=== PATIENT | male | born 1935 | race African-American/Black ===

== ENCOUNTER 2017-06-17 14:10 | Day surgery (SDC) | payer OTHER ==
[~2017-06-17 14:10] MED LIST: DIGO0.12 PO; LEVO25TA4 PO; LOVA40TA PO; PANT40TA3 PO; TAMS0.4C4 PO
--- NOTE | 2017-06-18 09:01 | RADRPT ---
EXAM DATE/TIME: 06/17/2017 00:00 [place] COMPARISON : No previous studies available for comparison. INDICATIONS : Colon Ca/liver mets OBJECTIVE: Temperature: 97.4 Heart Rate: 78 Blood Pressure: 140/70 Respiratory: 20 Oximetry: 98 PNEUMONIA VACCINE: HISTORY OF PRESENT ILLNESS: Mr. 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 Patient also has a history of renal cell carcinom a status post right-sided nephrectomy with now chronic azotemia. Followup CT imaging has demonstrated interval progression of disease in the liver with multiple bilobar hepatic masses. He is without com plaints and denies a palpable pain. He lives alone in a senior home but has a relatively good functio nal status, ECOG 1. PAST MEDICAL HISTORY : 1. Carcinoma, colon.Liver mets 2. Renal cell carcinoma. 3. Hypertension. 4. Neuropathy PAST SURGICAL HISTORY : 1. Left nephrectomy partial right nephrectomy 2. Pacer-defibrillator 3. Partial Colectomy SOCIAL HISTORY : No alcohol use. No alcohol use. Tobacco;none. ALLERGIES: 1. NKDA MEDICATIONS: 1. Neurontin (Gabapentin) 2. Lanoxin (Digoxin) 0.125 mg q.d. 3. Levothyroxine 25 mg q.d. 4. Lovastatin 40 mg q.d. 5. Pantoprazole 40 mg q.d. PHYSICAL EXAMINATION: General: Well nourished and in no acute distress Abdomen: Soft, nontender nondistended. IMAGING STUDIES: CT 06/09/2017 demonstrating multiple enlarging bilobar hepatic masses measuring up to 6 cm with at le ast 2 new lesions compared with 01/06/2017 CT exam. CMP collected 06/08/2017 demonstrates total bilirubin 0.7, albumin 4.0, normal AST and ALT. CEA eleva ольга 193.5. 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 He has relatively intact hepatic function with reasonable frontal status, ECOG 1. Extent of disease precludes curative intent ablative therapy. However, he is a good candidate for locoregio nal Y90 embolization. PLAN: Tentative plan for yttrium-90 embolization. TIME SPENT: 20 minutes Roibn Herrera MD on June 18, 2017 at 7:54 Board Certified Radiologist. This report was verified electronically.
== END 2017-06-17 15:20 | disposition home or self-care (01) ==
LOC: HROP 14:10 → HRIP 14:13 → HROP 15:20
PROVIDERS: ATTEND Internal Medicine Hematology & Oncology
DX: C78.7 Secondary malignant neoplasm of liver and intrahepatic bile duct (principal); C18.7 Malignant neoplasm of sigmoid colon; D64.9 Anemia, unspecified

== ENCOUNTER → 2018-01-29 | Day surgery (SDC) | payer OTHER ==
[~2018-01-29] VITALS: Ht 180.3 cm; Wt 71.9 kg
[~2018-01-29] MED LIST changes: +ACETAMINOPHEN 1000 MG/100 ML 0 ML IV ONE; +BUPIVACAINE HCL PF 0.25% 30 ML VIAL ONE; +CHLORHEXIDINE GLUCONATE 2 % 1 PACK (2 CLOTHS) TOPICAL PRN; +CIPROFLOXACIN/DEXT 200 MG/100 ML IV SCH; +FAMOTIDINE 20 MG/2 ML VIAL ONE; +GABA100C4 PO; +LACTATED RINGER'S 1000 ML IV PRN; +LIDOCAINE 2% JELLY 30 ML TUBE ONE; +LIDOCAINE HCL 1% PF 10 ML VIAL ONE; +LIDOCAINE HCL 1% PF 5 ML SYRINGE OTHER ONE; +METO25TA3 PO; +METOPROLOL TARTRATE 25 MG TAB PO PRN; +MIDAZOLAM HCL 2 MG/2 ML VIAL ONE; +PHENYLEPH/NS 1000 MCG/10 ML SYR IV ONE; +POVIDONE IODINE 5% (ANTISEPSIS KIT) 4 APPLICATIONS EACH NARE PRN; +PROPOFOL 200 MG/20 ML AMP IV ONE; +SODIUM CHLORID 0.9% 500 ML IV PRN
[2018-01-29 07:04] LABS: AUTOMATED NEUTROPHIL # 2.7 TH/MM3 (1.8-7.7); BASOPHIL % 0.7 % (0.0-2.0); EOSINOPHIL # 0.2 TH/MM3 (0-0.4); EOSINOPHIL % 3.9 % (0.0-4.0); HEMATOCRIT 37.7 % (39.0-51.0); HEMOGLOBIN 12.3 GM/DL (13.0-17.0); LYMPH % 29.3 % (9.0-44.0); LYMPHOCYTE # 1.4 TH/MM3 (1.0-4.8); MEAN CELL VOLUME 87.6 FL (80.0-100.0); MEAN CORPUSCULAR HEMOGLOBIN 28.7 PG (27.0-34.0); MEAN CORPUSCULAR HGB CONC 32.7 % (32.0-36.0); MEAN PLATELET VOLUME 8.5 FL (7.0-11.0); MONO % 10.7 % (0.0-8.0); MONOCYTE # 0.5 TH/MM3 (0-0.9); NEUT % 55.4 % (16.0-70.0); PLATELET COUNT 169 TH/MM3 (150-450); RED CELL DISTRIBUTION WIDTH 15.2 % (11.6-17.2); WHITE BLOOD COUNT 4.9 TH/MM3 (4.0-11.0)
--- NOTE | 2018-01-29 08:41 | PD.OP ---
Operative Report Date of Surgery: Jan 29, 2018 Preoperative Diagnosis: Elevated PSA with positive family history for prostate cancer Postoperative Diagnosis: Same Procedure: Trans-rectal ultrasound with prostate needle biopsies Anesthesia: [facility] [place] Surgeon: Diallo Rider Vat Tender(s): None Resident Surgeon: None Operation and Findings: 82-year-old male with elevation of his PSA of 16.4 with a positive family history for prostate cancer. Patient elected to undergo prostate needle biopsy. The patient received his preprocedure antibiotics as well as a fleets enema. Risk and benefits were discussed and the patient was willing to proceed. The patient was brought to the operating room and identified by myself as Bunny Ambrose. He was placed in the left lateral recumbent position and the ultrasound probe was inserted into the rectum. Volumetric measurements of the prostate were then taken. No hypoechoic lesions were identified. Volumetric measurements of the prostate were taken of the prostate was found to be 40.57 cm. 12 core biopsy specimens were taken. He tolerated the procedure well and was awoken and transferred to recovery room in stable condition. He will follow-up in the office in a few weeks to review the results. Diallo Rider DO Jan 29, 2018 08:41
[2018-01-29 09:40] VITALS: BP 158/78; PULSE 75; RESP 16; TEMP 97.6; O2SAT 98
--- NOTE | 2018-01-29 10:36 | EKG ---
Date Performed: 01/29/2018 Time Performed: 06:47:46 PTAGE: 82 years EKG: ELECTRONIC ATRIAL PACEMAKER ELECTRONIC VENTRICULAR PACEMAKER ABNORMAL RHYTHM ECG PREVIOUS TRACING : 12/26/2015 10.25 Compared to previous tracing, atrial pacing is now evident. DOCTOR: Deonte Rogers Interpretating Date/Time 01/29/2018 10:35:50
== END | disposition home or self-care (01) ==
LOC: HSDC 05:56
PROVIDERS: ATTEND Urology
DX: R97.20 Elevated prostate specific antigen [PSA] (principal); N40.0 Benign prostatic hyperplasia without lower urinary tract symptoms; Z80.42 Family history of malignant neoplasm of prostate; E03.9 Hypothyroidism, unspecified; I11.0 Hypertensive heart disease with heart failure; C18.9 Malignant neoplasm of colon, unspecified; I48.91 Unspecified atrial fibrillation; E78.00 Pure hypercholesterolemia, unspecified; Z95.0 Presence of cardiac pacemaker; G62.0 Drug-induced polyneuropathy; T45.1X5S Adverse effect of antineoplastic and immunosuppressive drugs, sequela; Z85.528 Personal history of other malignant neoplasm of kidney; Z01.810 Encounter for preprocedural cardiovascular examination; Z01.818 Encounter for other preprocedural examination
CPT/HCPCS: 00400; 55700; 85025; 88305; 93005; J0744; J2370; J7120; J0131; J2250; J3010

== ENCOUNTER 2018-07-16 18:43 | Inpatient (IN) ==
[2018-07-16 20:16] LABS: Baso % (Auto) 0.6 % (0.0-2.0); Eos % (Auto) 0.1 % (0.0-4.0); Hematocrit 39.4 % (39.0-51.0); Hemoglobin 12.7 gm/dL (13.0-17.0); Lymph # (Auto) 0.6 th/mm3 (1.0-4.8); Lymph % (Auto) 8.8 % (9.0-44.0); Mean Corpuscular HGB Conc 32.2 % (32.0-36.0); Mean Corpuscular Hemoglobin 28.2 pg (27.0-34.0); Mean Corpuscular Volume 87.6 fL (80.0-100.0); Mono # (Auto) 0.9 th/mm3 (0.0-0.9); Mono % (Auto) 12.4 % (0.0-8.0); Neut # (Auto) 5.6 th/mm3 (1.8-7.7); Neut % (Auto) 78.1 % (16.0-70.0); Platelet Count 158 th/mm3 (150-450); Red Cell Distribution Width 15.1 % (11.6-17.2); White Blood Count 7.1 th/mm3 (4.0-11.0)
[2018-07-16 20:24] LABS: Activated Partial Thrombo Time 28.8 sec (23.4-31.7); INR 1.1 Ratio; Prothrombin Time 10.9 sec (9.8-11.6)
--- NOTE | 2018-07-16 20:26 | XR ---
EXAM DATE: 07/16/2018 8:12 PM EST AGE/SEX: 83 years / Male INDICATIONS: Chest pain. CLINICAL DATA: This is the patient's initial encounter. Patient reports that signs and symptoms have been present for 1 day and indicates a pain score of 3/10. MEDICAL/SURGICAL HISTORY: . Cardiovascular disease. Carcinoma, colon. Hypertension. . Neph rectomy, right. Cholecystectomy. Pacemaker. Partial left nephrectomy COMPARISON: [facility] [place], CHEST 1V SINGLE AP, 07/01/2018. . FINDINGS: Today's exam is compared to the prior study. There continues to be stable elevation of the right ray diaphragm. There is stable atelectasis versus scarring in the right lower lung. Otherwise, the lungs are clear and well-aerated. No new or acute pulmonary infiltrates are seen. There is a pacemaker over lying the left chest. The heart size is within normal limits. There are no pleural effusions or pulmo nary edema. No significant changes are seen compared to the prior study. CONCLUSION: Stable atelectasis versus scarring in the right lower lung. Stable elevation right hemidiaphragm. No new or acute pulmonary infiltrates. Electronically signed by: Clyde Crum MD 07/16/2018 8:25 PM EST
[2018-07-16 20:29] LABS: Albumin 3.3 g/dL (3.4-5.0); Anion Gap 7 meq/L (5-15); Aspartate Aminotransferase 57 U/L (15-37); Blood Urea Nitrogen 32 mg/dL (7-18); Calcium 10.5 mg/dL (8.5-10.1); Carbon Dioxide 23.9 meq/L (21.0-32.0); Chloride 102 meq/L (98-107); Glomerular Filtration Rate 37 mL/min (>89); Glucose,Random 107 mg/dL (74-106); Sodium 133 meq/L (136-145)
[2018-07-16 20:30] LABS: Alanine Aminotransferase 14 U/L (12-78)
[2018-07-16 20:44] LABS: Alkaline Phosphatase 85 U/L (45-117); Creatine Kinase 1438 U/L (39-308); Total Protein 8.1 g/dL (6.4-8.2); Troponin I 0.04 ng/mL (0.02-0.05)
[2018-07-16 20:58] LABS: CKMB Percent 0.1 % (0.0-4.0); Creatine Kinase MB 1.1 ng/mL (0.5-3.6)
--- NOTE | 2018-07-16 21:06 | ED ---
HPI General Chief complaint: Electronic Warfare Technician Problem Stated complaint: pacemaker issues Time Seen by Provider: 07/16/18 19:50 Source: patient Mode of arrival: ambulatory Limitations: no limitations History of Present Illness HPI narrative: 83-year-old male that presents to the ED for evaluation of his pacemaker shocking him. Per patient he had a pacemaker replaced yesterday by Dr. Baird per patient he has been doing well except today he has been shocked per patient at least 4 times. Patient and family are not really great historians. Patient himself does not know if this is a defibrillator or not. Per patient he has the pacemaker because there is "a problem with his heart ". He cannot really specify what the problem is. He per family has a history of also cancer and currently is undergoing any chemo. They are concerned that this could be related to the reason why patient is having this sharp pains. Patient states that he takes blood thinners. She denies any urinary or bowel movement issues. Has no fevers chills or sweats. Pain per patient when he comes this sharp 7 out of 10. Currently he has no pain. Per patient and last went off about 30 minutes ago before coming. Patient is somewhat of a poor historian and doesn't know the medications he takes. When asked if the patient has a history of atrial fibrillation he is unsure in the family is also unsure. He does appear to be in atrial for ablation at this time however. Related Data Home Medications Medication Instructions Recorded Confirmed amiodarone 200 mg PO DAILY 07/15/18 07/16/18 hydrochlorothiazide 25 mg PO DAILY 07/15/18 07/16/18 isosorbide mononitrate 60 mg PO QAM 07/15/18 07/16/18 levothyroxine 25 mcg PO DAILY 07/15/18 07/16/18 lovastatin 40 mg PO DAILY 07/15/18 07/16/18 metoprolol succinate 100 mg PO DAILY 07/15/18 07/16/18 pantoprazole 40 mg PO DAILY 07/15/18 07/16/18 spironolactone 25 mg PO BID 07/15/18 07/16/18 Previous Rx's Medication Instructions Recorded hydrocodone-acetaminophen 1 tab PO Q4H PRN tab 07/15/18 Allergies Allergy/AdvReac Type Severity Reaction Status Date / Time No Known Allergies Allergy Verified 07/15/18 05:45 Review of Systems ROS: all other systems reviewed are negative [facility] Medical History Medical History CAD (coronary artery disease) (Acute) CHF (congestive heart failure) (Acute) Cardiac defibrillator in place (Acute) Cardiomyopathy (Acute) Colon cancer (Acute) Hypertension (Acute) Hypothyroid (Acute) S/p nephrectomy (Acute) SVT (supraventricular tachycardia) (Acute) Social History Social History Substance History: No History of Abuse Second Hand Smoke Exposure: Yes Smoking Status: Never smoker How Often Do You Have a Drink Containing Alcohol: Never Immunization History Tetanus Immunization: Unsure Exam Narrative Exam Narrative: GENERAL: Well appearing. Anorexic. SKIN: Focused skin assessment warm/dry. HEAD: Atraumatic. Normocephalic. EYES: Pupils equal and round 4mms reactive to light and accomodation. No scleral icterus. No injection or drainage. ENT: No nasal bleeding or discharge. Mucous membranes pink and moist. Tongue is midline. No uvula deviation. NECK: Trachea midline. No JVD. CARDIOVASCULAR: irregular irregular rate and rhythm. No murmur appreciated. RESPIRATORY: No accessory muscle use. Clear to auscultation. Breath sounds equal bilaterally. GASTROINTESTINAL: Abdomen soft, non-tender, nondistended. Hepatic and splenic margins not palpable. MUSCULOSKELETAL: No obvious deformities. No clubbing. No cyanosis. No edema. Full range of motion of the upper and lower extremities bilaterally. 2+ pulses bilaterally. NEUROLOGICAL: Awake and alert. No obvious cranial nerve deficits. Motor grossly within normal limits. Normal speech. PSYCHIATRIC: Appropriate mood and affect; insight and judgment normal. Course Initial Documented Vital Signs Temperature 97.2 F L 07/16/18 19:02 Pulse Rate 120 H 07/16/18 19:02 Respiratory Rate 20 07/16/18 19:02 Blood Pressure 139/81 07/16/18 19:02 Pulse Oximetry 98 07/16/18 19:02 Last Documented Vital Signs Temperature 97.2 F L 07/16/18 19:02 Pulse Rate 118 H 07/16/18 21:00 Respiratory Rate 20 07/16/18 21:00 Blood Pressure 125/58 L 07/16/18 21:00 Pulse Oximetry 97 07/16/18 21:00 Medical Decision Making MDM Narrative Medical decision making narrative: 83-year-old male that presents to the ED for evaluation of his of her bladder going off about 4 times today. Patient was properly examined and was found to have signs and symptoms consistent appears to be atrial fibrillation. We will have his pacemaker interrogated. Patient was on Cardizem. Labs and imaging ordered. Labs and imaging showed no sign of acute disease or to an elevated CK likely from having his heart shocked at least 6 times per Video [employer] report. Per report patient has been going to ventricular rates of 182-273 bpm and he has been in A. fib as well. Per Video Rec[employer] rapid he is going to talk to Dr. Gates and he believes he is currently in the building. Labs and imaging showed no sign of acute disease other than atrial fib in RVR. Dr Lee called back and recommends admission and medical management. Case discussed with my attending Dr Jean-Baptiste who agrees with plan. Dr Wadsworth agrees to admission to her service. Medical Screen Exam Complete: Yes Emergency Medical Condition: Yes Differential Diagnosis Differential Diagnosis: core manager malfunction versus A. fib and RVR versus SVT versus arrhythmia versus ACS Medical Records Medical records reviewed: Yes I reviewed the patient's medical records. Lab Data Lab results reviewed: Yes I reviewed the patient's lab results. Result diagrams: 07/16/18 20:00 07/16/18 20:00 Lab Results 07/16/18 07/16/18 07/16/18 Range/Units 20:00 20:00 20:00 WBC 7.1 (4.0-11.0) th/mm3 RBC 4.50 (4.50-5.90) mil/mm3 Hgb 12.7 L (13.0-17.0) gm/dL Hct 39.4 (39.0-51.0) % MCV 87.6 (80.0-100.0) fL MCH 28.2 (27.0-34.0) pg MCHC 32.2 (32.0-36.0) % RDW 15.1 (11.6-17.2) % Plt Count 158 (150-450) th/mm3 MPV 10.0 (7.0-11.0) fL Neut % (Auto) 78.1 H (16.0-70.0) % Lymph % (Auto) 8.8 L (9.0-44.0) % Gregg % (Auto) 12.4 H (0.0-8.0) % Eos % (Auto) 0.1 (0.0-4.0) % Baso % (Auto) 0.6 (0.0-2.0) % Neut # (Auto) 5.6 (1.8-7.7) th/mm3 Lymph # (Auto) 0.6 L (1.0-4.8) th/mm3 Gregg # (Auto) 0.9 (0.0-0.9) th/mm3 Eos # (Auto) 0.0 (0.0-0.4) th/mm3 Baso # (Auto) 0.0 (0.0-0.2) th/mm3 WBC Differential . Differential Comment Auto diff final PT 10.9 (9.8-11.6) sec INR 1.1 Ratio APTT 28.8 (23.4-31.7) sec Sodium 133 L (136-145) meq/L Potassium 5.0 (3.5-5.1) meq/L Chloride 102 (98-107) meq/L Carbon Dioxide 23.9 (21.0-32.0) meq/L Anion Gap 7 (5-15) meq/L BUN 32 H (7-18) mg/dL Creatinine 2.08 H (0.60-1.30) mg/dL Estimated GFR 37 L (>89) mL/min Random Glucose 107 H (74-106) mg/dL Calcium 10.5 H (8.5-10.1) mg/dL Total Bilirubin 1.2 H (0.2-1.0) mg/dL AST 57 H (15-37) U/L ALT 14 (12-78) U/L Alkaline Phosphatase 85 (45-117) U/L Total Creatine Kinase 1438 H (39-308) U/L CK-MB (CK-2) 1.1 (0.5-3.6) ng/mL CK-MB (CK-2) % 0.1 (0.0-4.0) % Troponin I 0.04 (0.02-0.05) ng/mL Total Protein 8.1 (6.4-8.2) g/dL Albumin 3.3 L (3.4-5.0) g/dL Imaging Data Attestation: I personally reviewed and interpreted this imaging study as follows : Radiologist's impression: Chest X-Ray 07/16/18 19:51 CONCLUSION: Stable atelectasis versus scarring in the right lower lung. Stable elevation right hemidiaphragm. No new or acute pulmonary infiltrates. ECG Data Attestation: I personally reviewed and interpreted this ECG as follows: Interpretation: EKG shows paced rhythm with what appears to be also atrial fibrillation. No sign of acute ischemia read by me and attending. Discharge Plan Discharge Disposition Patient Disposition: 30 Still Patient Discharge Details Diagnosis: Atrial fibrillation with RVR, Defibrillator discharge Physicians Team ED Provider: Thony Jean-Baptiste ED Midlevel Provider: Byron Spangler Primary Care Provider: SUMANTH, Attending Provider: Keri Wadsworth Discharge Interventions Interventions: Vital Signs Last Done: 07/16/18 21:00 Status ED Status: Admitted Patient
[2018-07-16] MEDS ORDERED: Acetaminophen 325 MG Tablet PO PRN (21:46)
[2018-07-16] MEDS ORDERED: Bisacodyl 10 MG Supp RECTAL PRN (21:46)
--- NOTE | 2018-07-16 21:48 | P.HPIM ---
History of Present Illness History of Present Illness: This is an 83-year-old male with a PMH of HTN, CAD, h/o Colon CA, h/o V-tach s/ p AICD and h/o Nephrectomy who was brought to the ER by family for c/o SOB and AICD firing. Pt underwent AICD replacement for end of life battery by Dr. Ervin yesterday, on 07/15/18, per family pt had been doing well until today when he developed acute onset of SOB. Niece notes pt w/ multiple episodes of AICD firing. On arrival, pt noted to be in A-fib w/ RVR, HR 130's. Medtronic device interrogated in ER, pt shocked 6 times after going into ventricular rate of approx 182-273 w/ episodes of A-fib. Dr. Lee consulted by ER physician , recommendation for Cardizem gtt. Pt currently without complaints. BP 129/75 , HR 99, O2 sat 97% on RA, Afebrile. CBC essentially unremarkable. INR 1.1 per creatinine 2.08, previously 2.0 on 07/01/2018. CPK 1438. Troponin 0.04. CXR with stable findings, no acute infiltrates. - Diagnosis (1) Defibrillator discharge (2) Atrial fibrillation with RVR (3) Rhabdomyolysis (4) Renal insufficiency Inpatient Certification: I certify that the inpatient services were ordered in accordance with Medicare regulations governing the order. This includes certification that hospital inpatient services are reasonable and necessary and in the case of services not specified as inpatient-only under 42 CFR 419.22(n), that they are appropriately provided as inpatient services in accordance to with the 2-midnight benchmark under 43 CFR 412.3(e) Estimated Total Length of Stay (Days): 2 Plans for Post Hospital Care: Not yet determined Review of Systems PAST FAMILY HISTORY: Reviewed. No h/o DM or CAD All other systems reviewed negative except as stated in HPI [facility] - History History Provided By: Patient - Medical History Medical History: Medical History (Last Reviewed 07/16/18 @ 21:03 by GURINDER Dupree) CAD (coronary artery disease) CHF (congestive heart failure) Cardiac defibrillator in place Cardiomyopathy Colon cancer Hypertension Hypothyroid S/p nephrectomy SVT (supraventricular tachycardia) - Tobacco History Second Hand Smoke Exposure: Yes Smoking Status: Never smoker - Alcohol History How Often Do You Have a Drink Containing Alcohol: Never - Substance Use History Substance History: No History of Abuse - Immunization History Tetanus Immunization: Unsure Medications and Allergies Active Medications: Active Medications Diltiazem HCl 125 mg/ Sodium (Chloride) 125 mls @ 5 mls/hr IV.CONT TITRATE PRN ; Protocol PRN Reason: Per Protocol Allergies Allergy/AdvReac Type Severity Reaction Status Date / Time No Known Allergies Allergy Verified 07/15/18 05:45 Home Medications Medication Instructions Recorded Confirmed Type amiodarone 200 mg PO DAILY 07/15/18 07/16/18 History hydrochlorothiazide 25 mg PO DAILY 07/15/18 07/16/18 History isosorbide mononitrate 60 mg PO QAM 07/15/18 07/16/18 History levothyroxine 25 mcg PO DAILY 07/15/18 07/16/18 History lovastatin 40 mg PO DAILY 07/15/18 07/16/18 History metoprolol succinate 100 mg PO DAILY 07/15/18 07/16/18 History pantoprazole 40 mg PO DAILY 07/15/18 07/16/18 History spironolactone 25 mg PO BID 07/15/18 07/16/18 History Exam Vital signs: Vital Signs 07/16/18 19:02 07/16/18 19:06 07/16/18 20:06 Temperature 97.2 F L Pulse Rate 120 H 123 H 110 H Respiratory Rate 20 20 20 Blood Pressure 139/81 143/80 H 154/73 H Pulse Oximetry 98 98 98 07/16/18 21:00 Temperature Pulse Rate 118 H Respiratory Rate 20 Blood Pressure 125/58 L Pulse Oximetry 97 Intake & Output 07/16/18 07/16/18 07/17/18 06:59 18:59 06:59 Weight 63.503 kg Narrative: PE: GENERAL: Pleasant elderly black male in no acute distress. Family at bedside. SKIN: Focused skin assessment warm and dry. HEENT: PERRLA, EOMI. No scleral icterus or conjunctival pallor. No lid lag or facial droop. CARDIOVASCULAR: Irregularly irregular, in A. fib, HR 100's. no obvious murmurs to auscultation. No chest tenderness to palpation. RESPIRATORY: No obvious rhonchi or wheezing. Clear to auscultation. Breath sounds equal bilaterally. GASTROINTESTINAL: Abdomen soft, non-tender, nondistended. BS normal. MUSCULOSKELETAL: Extremities without clubbing, cyanosis, or edema. No obvious deformities. NEUROLOGICAL: Awake, alert and oriented x4. No focal neurologic deficits. Moving both upper and lower extremities spontaneously. PSYCHIATRIC: Appropriate mood and affect. Insight and judgment normal. Results - Labs CBC & Chem 7: 07/16/18 20:00 07/16/18 20:00 Labs: Short CBC 07/16/18 Range/Units 20:00 WBC 7.1 (4.0-11.0) th/mm3 Hgb 12.7 L (13.0-17.0) gm/dL Hct 39.4 (39.0-51.0) % Plt Count 158 (150-450) th/mm3 BMP 07/16/18 20:00 Sodium 133 L Potassium 5.0 Chloride 102 Carbon Dioxide 23.9 BUN 32 H Creatinine 2.08 H Calcium 10.5 H Cardiac Enzymes 07/16/18 Range/Units 20:00 Total Creatine Kinase 1438 H (39-308) U/L CK-MB (CK-2) 1.1 (0.5-3.6) ng/mL Troponin I 0.04 (0.02-0.05) ng/mL Liver Function 07/16/18 Range/Units 20:00 Total Bilirubin 1.2 H (0.2-1.0) mg/dL AST 57 H (15-37) U/L ALT 14 (12-78) U/L Alkaline Phosphatase 85 (45-117) U/L Albumin 3.3 L (3.4-5.0) g/dL - Imaging Impressions Chest X-Ray 07/16/18 19:51 CONCLUSION: Stable atelectasis versus scarring in the right lower lung. Stable elevation right hemidiaphragm. No new or acute pulmonary infiltrates. Caprini VTE Risk Assessment Caprini VTE Risk Assessment: No/Low Risk (score <= 1) Caprini Risk Assessment Model: Point Value = 1 Point Value = 2 Point Value = 3 Point Value = 5 Age 41-60 Minor surgery BMI > 25 kg/m2 Swollen legs Varicose veins or History of unexplained or recurrent spontaneous Oral contraceptives or hormone replacement Sepsis (< 1 month) Serious lung disease, including pneumonia (< 1 month) Abnormal pulmonary function Acute myocardial infarction Congestive heart failure (< 1 month) History of inflammatory bowel disease Medical patient at bed rest Age 61-74 Arthroscopic surgery Major open surgery (> 45 min) Laparoscopic surgery (> 45 min) Malignancy Confined to bed (> 72 hours) Immobilizing plaster cast Central venous access Age >= 75 History of VTE Family history of VTE Factor V Leiden Prothrombin [id number] Lupus anticoagulant Anticardiolipin antibodies Elevated serum homocysteine Heparin-induced thrombocytopenia Other congenital or acquired thrombophilia Stroke (< 1 month) Elective arthroplasty Hip, pelvis, or leg fracture Acute spinal cord injury (< 1 month) Prophylaxis Regimen: Total Risk Factor Score Risk Level Prophylaxis Regimen 0-1 Low Early ambulation 2 Moderate Order ONE of the following: *Sequential Compression Device (SCD) *Heparin 5000 units SQ BID 3-4 Higher Order ONE of the following medications: *Heparin 5000 units SQ TID *Enoxaparin/Lovenox 40 mg SQ daily (WT < 150 kg, CrCl > 30 mL/min) *Enoxaparin/Lovenox 30 mg SQ daily (WT < 150 kg, CrCl > 10-29 mL/min) *Enoxaparin/Lovenox 30 mg SQ BID (WT < 150 kg, CrCl > 30 mL/min) AND/OR *Sequential Compression Device (SCD) 5 or more Highest Order ONE of the following medications: *Heparin 5000 units SQ TID (Preferred with Epidurals) *Enoxaparin/Lovenox 40 mg SQ daily (WT < 150 kg, CrCl > 30 mL/min) *Enoxaparin/Lovenox 30 mg SQ daily (WT < 150 kg, CrCl > 10-29 mL/min) *Enoxaparin/Lovenox 30 mg SQ BID (WT < 150 kg, CrCl > 30 mL/min) AND *Sequential Compression Device (SCD) Assessment and Plan - Assessment (1) Defibrillator discharge Code(s): Z45.02 - Encounter for adjustment and management of automatic implantable cardiac defibrillator Status: Acute (2) Atrial fibrillation with RVR Code(s): I48.91 - Unspecified atrial fibrillation Status: Acute (3) Rhabdomyolysis Code(s): M62.82 - Rhabdomyolysis Status: Acute (4) Renal insufficiency Code(s): N28.9 - Disorder of kidney and ureter, unspecified Status: Acute - Plan A/P: 1. AICD Firing: s/p Medtronic exchange 07/15/[address] Ervin for end of life battery, today w/ AICD firing x6 per [employer] interrogation, noted to have ventricular rates of 182-273 and episodes of A-fib. Currently without complaints, Consult Dr. Ervin for further eval/intervention. 2. A-fib: w/ RVR, unclear if h/o A-fib, HR 130's on arrival, Dr. Lee consulted by ER physician, recommendation for Cardizem gtt, will admit to [facility], continue Cardizem. 3. Rhabdomyolysis: CPK 1438, IVF for hydration-caution w/ h/o CHF, monitor I/O , repeat CPK in am for trend. 4. Renal Insufficiency: Creatinine 2.08, previously 2.00 on 07/01/18, monitor I/O as above, gentle IVF for hydration, repeat labs in am. 5. DVT Prophylaxis: SCD/Teds 6. Social work for d/c planning as needed 7. Case discussed w/ ER physician at length, labs/records/imaging reviewed by me.
[2018-07-16] MEDS: dilTIAZem Inj 125 MG in Sodium Chlor 0.9% Inj 100 ML IV.CONT PRN (22:16)
[2018-07-16] MEDS: Sod Chloride 0.9% Inj 1,000 ML IV.CONT SCH (22:16)
[2018-07-17 03:42] LABS: Baso % (Auto) 0.6 % (0.0-2.0); Eos % (Auto) 0.2 % (0.0-4.0); Hemoglobin 10.3 gm/dL (13.0-17.0); Lymph # (Auto) 0.7 th/mm3 (1.0-4.8); Lymph % (Auto) 13.3 % (9.0-44.0); Mean Corpuscular HGB Conc 33.2 % (32.0-36.0); Mean Corpuscular Hemoglobin 28.5 pg (27.0-34.0); Mean Platelet Volume 9.7 fL (7.0-11.0); Mono # (Auto) 0.7 th/mm3 (0.0-0.9); Mono % (Auto) 12.8 % (0.0-8.0); Neut # (Auto) 3.9 th/mm3 (1.8-7.7); Neut % (Auto) 73.1 % (16.0-70.0); Platelet Count 130 th/mm3 (150-450); Red Cell Distribution Width 14.8 % (11.6-17.2); White Blood Count 5.3 th/mm3 (4.0-11.0)
[2018-07-17 04:12] LABS: Alanine Aminotransferase 10 U/L (12-78); Albumin 2.5 g/dL (3.4-5.0); Alkaline Phosphatase 65 U/L (45-117); Anion Gap 8 meq/L (5-15); Aspartate Aminotransferase 40 U/L (15-37); Blood Urea Nitrogen 29 mg/dL (7-18); Calcium 9.4 mg/dL (8.5-10.1); Carbon Dioxide 25.3 meq/L (21.0-32.0); Chloride 106 meq/L (98-107); Creatine Kinase 803 U/L (39-308); Glomerular Filtration Rate 45 mL/min (>89); Glucose,Random 140 mg/dL (74-106); Potassium 4.5 meq/L (3.5-5.1); Sodium 139 meq/L (136-145); Total Protein 6.4 g/dL (6.4-8.2); Troponin I 0.05 ng/mL (0.02-0.05)
[2018-07-17 04:33] LABS: CKMB Percent 0.1 % (0.0-4.0); Creatine Kinase MB 1.1 ng/mL (0.5-3.6)
[2018-07-17] MEDS: Isosorbide Mononitrate 60 MG ER 24HR Tablet (Imdur) PO SCH ×2 (05:41→09:39)
[2018-07-17] MEDS: Amiodarone 200 MG Tablet PO SCH (09:41)
[2018-07-17] MEDS: Senna/Docusate Sodium 8.6/50 MG Tablet PO SCH ×2 (09:41→21:17)
[2018-07-17] MEDS: Spironolactone 25 MG Tablet PO SCH ×2 (09:41→21:15)
[2018-07-17] MEDS: Sod Chloride 0.9% Inj 1,000 ML IV.CONT SCH ×3 (09:42→18:02)
--- NOTE | 2018-07-17 12:51 | ECG ---
Date Performed: 07/16/2018 Time Performed: 19:52:52 PTAGE: 83 years EKG: ELECTRONIC VENTRICULAR PACEMAKER ABNORMAL RHYTHM ECG Since the previous tracing, no signifi cant change noted NO PREVIOUS TRACING DOCTOR: Ravinder Gimenez Interpretating Date/Time 07/17/2018 12:49:24
--- NOTE | 2018-07-17 13:19 | P.PN ---
Subjective Interval history: currently in paced rhythm telemetry reviewed- earlier went into a fib rhythm, tachy at 130s states ff by Dr. Ervin- does not recall being on an OAC Physical Exam Vital signs: Vital Signs 07/16/18 19:02 07/16/18 19:06 07/16/18 20:06 Temperature 97.2 F L Pulse Rate 120 H 123 H 110 H Respiratory Rate 20 20 20 Blood Pressure 139/81 143/80 H 154/73 H Pulse Oximetry 98 98 98 07/16/18 21:00 07/16/18 22:00 07/16/18 23:00 Temperature Pulse Rate 118 H 99 H 90 Respiratory Rate 20 20 18 Blood Pressure 125/58 L 129/75 124/59 L Pulse Oximetry 97 98 07/17/18 00:02 07/17/18 03:00 07/17/18 04:00 Temperature 98.2 F 98.1 F Pulse Rate 86 72 66 Respiratory Rate 18 18 Blood Pressure 118/60 129/76 Pulse Oximetry 97 97 07/17/18 05:00 07/17/18 06:00 07/17/18 07:00 Temperature Pulse Rate 74 89 92 H Respiratory Rate Blood Pressure Pulse Oximetry 07/17/18 07:37 07/17/18 08:00 07/17/18 09:00 Temperature 99.2 F Pulse Rate 92 H 104 H 102 H Respiratory Rate 16 Blood Pressure 123/64 Pulse Oximetry 97 07/17/18 10:00 07/17/18 11:30 07/17/18 12:00 Temperature 99.5 F Pulse Rate 92 H 83 82 Respiratory Rate 16 Blood Pressure 128/57 L Pulse Oximetry 97 07/17/18 13:00 Temperature Pulse Rate 84 Respiratory Rate Blood Pressure Pulse Oximetry Intake & Output 07/16/18 07/17/18 07/17/18 18:59 06:59 18:59 Intake Total 240 / 240 Output Total 800 / 800 Balance -560 / -560 Weight 68 kg Intake: Oral 240 / 240 Output: Urine 800 / 800 Other: Date of Last Bowel Movement 07/16/18 # Incontinent Bowel Movements 0 Narrative: PE: GENERAL: Pleasant elderly black male in no acute distress.anciteric neck supple rgular rhtyhm - paced rhythm - occasional skipped beats no rales abdomen-soft, nontender extremities no edema moves eddie xtremities spotnaeously Results - Labs CBC & Chem 7: 07/17/18 03:00 07/18/18 05:33 Laboratory Results - last 24 hr 07/16/18 07/16/18 07/16/18 20:00 20:00 20:00 WBC 7.1 RBC 4.50 Hgb 12.7 L Hct 39.4 MCV 87.6 MCH 28.2 MCHC 32.2 RDW 15.1 Plt Count 158 MPV 10.0 Neut % (Auto) 78.1 H Lymph % (Auto) 8.8 L Chambers % (Auto) 12.4 H Eos % (Auto) 0.1 Baso % (Auto) 0.6 Neut # (Auto) 5.6 Lymph # (Auto) 0.6 L Chambers # (Auto) 0.9 Eos # (Auto) 0.0 Baso # (Auto) 0.0 WBC Differential . Differential Comment Auto diff final PT 10.9 INR 1.1 APTT 28.8 Sodium 133 L Potassium 5.0 Chloride 102 Carbon Dioxide 23.9 Anion Gap 7 BUN 32 H Creatinine 2.08 H Estimated GFR 37 L Random Glucose 107 H Calcium 10.5 H Total Bilirubin 1.2 H AST 57 H ALT 14 Alkaline Phosphatase 85 Total Creatine Kinase 1438 H CK-MB (CK-2) 1.1 CK-MB (CK-2) % 0.1 Troponin I 0.04 Total Protein 8.1 Albumin 3.3 L 07/17/18 07/17/18 07/17/18 00:25 03:00 03:00 WBC 5.3 RBC 3.60 L Hgb 10.3 L D Hct 31.0 L MCV 86.0 MCH 28.5 MCHC 33.2 RDW 14.8 Plt Count 130 L MPV 9.7 Neut % (Auto) 73.1 H Lymph % (Auto) 13.3 Chambers % (Auto) 12.8 H Eos % (Auto) 0.2 Baso % (Auto) 0.6 Neut # (Auto) 3.9 Lymph # (Auto) 0.7 L Chambers # (Auto) 0.7 Eos # (Auto) 0.0 Baso # (Auto) 0.0 WBC Differential . Differential Comment Auto diff final PT INR APTT Sodium 139 Potassium 4.5 Chloride 106 Carbon Dioxide 25.3 Anion Gap 8 BUN 29 H Creatinine 1.78 H Estimated GFR 45 L Random Glucose 140 H Calcium 9.4 D Total Bilirubin 0.8 AST 40 H ALT 10 L Alkaline Phosphatase 65 Total Creatine Kinase 803 H CK-MB (CK-2) 1.1 CK-MB (CK-2) % 0.1 Troponin I 0.05 0.05 Total Protein 6.4 D Albumin 2.5 L D - Imaging Impressions Chest X-Ray 07/16/18 19:51 CONCLUSION: Stable atelectasis versus scarring in the right lower lung. Stable elevation right hemidiaphragm. No new or acute pulmonary infiltrates. Assessment and Plan - Assessment (1) Defibrillator discharge Code(s): Z45.02 - Encounter for adjustment and management of automatic implantable cardiac defibrillator Status: Acute (2) Atrial fibrillation with RVR Code(s): I48.91 - Unspecified atrial fibrillation Status: Acute (3) Rhabdomyolysis Code(s): M62.82 - Rhabdomyolysis Status: Acute (4) Renal insufficiency Code(s): N28.9 - Disorder of kidney and ureter, unspecified Status: Acute - Plan 83 years old AICD Firing: s/p Medtronic exchange 07/15/[address] Ervin for end of life battery, today w/ AICD firing x6 per [employer] interrogation, noted to have Underlying A-fib: w/ RVR, unclear if h/o A-fib,- now with paced rhythm HR 130's on arrival Likely with underlying CMP- having AICD + on aldactone- not in clinical failure - ventricular rates of 182-273 and episodes of A-fib. - telemetry- paced rhythm- continue to monitor - Dr. Lee consulted by ER recommendation for Cardizem gtt- continue- 5 mg/ hr - continue on Nitrates, Aldactone - started on Amiodarone 200 mg daily, Toprol 100 mg XL daily - reviewed meds- not on any OAC - will d/w Cardio Rhabdomyolysis: CPK 1438- downt o 800s TOAN on underlying chronic Renal Insufficiency: with hsitory of nephrectomy - creatinine trended down- near baseline - continue IVF- decreased rate with udnerlying CMP - ff BMP, CK level DVT Prophylaxis: SCD/Teds will start Lovenox 30 mg SQ daily
[2018-07-17] MEDS: Enoxaparin Inj 30 MG/0.3 ML Syringe SQ SCH (14:07)
--- NOTE | 2018-07-17 16:16 | MB ---
cc: Nomi Lee DO DATE: 07/17/2018 REASON FOR CONSULTATION: AICD firing. HISTORY OF PRESENT ILLNESS: Zoila Ambrose is a pleasant 83-year-old male who is known to my partner, Dr. Ervin and underwent a generator exchange yesterday as his previous one was at end of life. Apparently, last night he developed acute onset of shortness of breath and his AICD fired 6 times. On arrival here, he was noted to be in atrial fibrillation with rapid ventricular response. Medtronic device was interrogated and he was noted to be shocked 6 times for ventricular rates of 182 to 273 due to atrial fibrillation. No ventricular tachycardia was noted. He was started on a Cardizem drip and this has since controlled his heart rate. In seeing him this morning, he states that he is feeling better with no chest pain or shortness of breath. PAST MEDICAL HISTORY: 1. Hypertension. 2. Coronary artery disease. 3. Colon cancer. 4. History of ventricular tachycardia. 5. Cardiomyopathy. 6. Atrial fibrillation. PAST SURGICAL HISTORY: 1. Generator exchange (07/15/2018) for end of life on previous device, implanted Medtronic biventricular pacemaker/defibrillator with pocket revision. 2. Transrectal ultrasound with prostate needle biopsy (01/29/2018). 3. Left partial nephrectomy (12/25/2015). 4. Sigmoid colectomy (06/29/2015). ALLERGIES: NO KNOWN DRUG ALLERGIES. MEDICATIONS: 1. Imdur 60 mg every morning. 2. Hydrochlorothiazide 25 mg daily. 3. Amiodarone 200 mg daily. 4. Synthroid 25 mcg daily. 5. Lovastatin 40 mg daily. 6. Toprol-XL 100 mg daily. 7. Protonix 40 mg daily. 8. Spironolactone 25 mg b.i.d. FAMILY HISTORY: Denies premature coronary artery disease or sudden cardiac within the family. SOCIAL HISTORY: Denies tobacco, alcohol or drug abuse. REVIEW OF SYSTEMS: Fourteen systems were reviewed including osteopathic. Pertinent positives and negatives above, otherwise negative. PHYSICAL EXAMINATION: VITAL SIGNS: Temperature 99.5, heart rate 83, blood pressure 128/57, respirations 16, pulse oximetry 97% on room air. GENERAL: The patient appears well, in no acute distress, alert and awake. HEENT: Extraocular muscles intact. Mucous membranes moist. NECK: Supple. No JVD at 45 degrees. No carotid bruits heard bilaterally. Carotid upstroke is brisk in nature. HEART: Irregularly irregular. Positive first and second heart sounds with no noted murmurs, gallops or rubs. LUNGS: Clear to auscultation bilaterally. No wheezes, rales or rhonchi. ABDOMEN: Soft, nontender, nondistended. No organomegaly noted. EXTREMITIES: Show no clubbing, cyanosis or edema. Femoral and distal pulses intact bilaterally. NEUROLOGIC: No focal deficits. SKIN: Warm, dry and intact. OSTEOPATHIC: No kyphoscoliosis, lordosis or paraspinal tender points. LABORATORY DATA: Hemoglobin 10.3, hematocrit 31.0, platelets 130. Potassium 4.5, BUN 29, creatinine 1.78. Troponin 0.05. Total CK 1438 decreasing to 803. Electrocardiogram (07/16/2018 at 1952): Underlying atrial fibrillation with ventricular pacing. IMPRESSION: 1. Atrial fibrillation with rapid ventricular response. 2. Automated implantable cardioverter defibrillator firing x6 for atrial fibrillation with rapid ventricular response. 3. Rhabdomyolysis. 4. Dehydration/acute kidney injury. 5. Known cardiomyopathy. 6. History of ventricular tachycardia. 7. Coronary artery disease. RECOMMENDATIONS: 1. Mr. Ambrose presented with atrial fibrillation with rapid ventricular response, which led to his AICD firing 6 times. No ventricular tachycardia is noted. 2. He has been started on a Cardizem drip and his heart rates are now controlled. Overall, it is difficult with his cardiomyopathy to decide if he should stay on Cardizem, especially if he has a significant cardiomyopathy. Last known ejection fraction we have been in the hospital is 20% to 25%, but that was in 2007. 3. Overall, the patient is a poor historian and unable to tell me if he has had any recent testing in the office, but I will attempt to investigate further from office notes to see if he has had any recent testing. 4. He is also not noted to be on any anticoagulation for his atrial fibrillation, although he has a known history of this. Once again, I will attempt to try to look through the office notes to see if there is any reason for not being on anticoagulation. 5. We will continue him on his amiodarone and metoprolol. Overall, the patient once again is a poor historian and is unable to tell me if he was taking his medications correctly. 6. Further recommendations will be made based on the hospital course. Thank you for allowing me to see Bunny Ambrose. If there are any questions, please do not hesitate to call. Nomi Lee DO VGP/alexandra , 01:47 PM , 02:00 PM
[2018-07-17] MEDS: dilTIAZem Inj 125 MG in Sodium Chlor 0.9% Inj 100 ML IV.CONT PRN (22:24)
[2018-07-18 06:37] LABS: Anion Gap 6 meq/L (5-15); Blood Urea Nitrogen 22 mg/dL (7-18); Calcium 9.2 mg/dL (8.5-10.1); Carbon Dioxide 22.9 meq/L (21.0-32.0); Chloride 110 meq/L (98-107); Glomerular Filtration Rate 46 mL/min (>89); Glucose,Random 92 mg/dL (74-106); Potassium 4.3 meq/L (3.5-5.1); Sodium 139 meq/L (136-145)
[2018-07-18 06:40] LABS: Creatine Kinase 362 U/L (39-308)
[2018-07-18 06:56] LABS: CKMB Percent 0.3 % (0.0-4.0)
[2018-07-18] MEDS: Enoxaparin Inj 30 MG/0.3 ML Syringe SQ SCH (08:47)
[2018-07-18] MEDS: Sod Chloride 0.9% Inj 1,000 ML IV.CONT SCH (08:48)
[2018-07-18] MEDS: Amiodarone 200 MG Tablet PO SCH (08:49)
[2018-07-18] MEDS: dilTIAZem 30 MG Tablet PO SCH ×4 (08:50→21:22)
[2018-07-18] MEDS: Spironolactone 25 MG Tablet PO SCH ×2 (08:50→21:22)
[2018-07-18] MEDS: Senna/Docusate Sodium 8.6/50 MG Tablet PO SCH ×2 (08:50→21:23)
[2018-07-18] MEDS: Isosorbide Mononitrate 60 MG ER 24HR Tablet (Imdur) PO SCH (08:50)
--- NOTE | 2018-07-18 10:52 | P.PN ---
Subjective Interval history: telemetry- paced rhythm no complains but not getting up much yet no nausea or vomiting or chest discomfort Physical Exam Vital signs: Vital Signs 07/17/18 11:00 07/17/18 11:30 07/17/18 12:00 Temperature 99.5 F Pulse Rate 83 83 82 Respiratory Rate 16 Blood Pressure 128/57 L Pulse Oximetry 97 07/17/18 13:00 07/17/18 14:00 07/17/18 15:00 Temperature Pulse Rate 84 86 81 Respiratory Rate Blood Pressure Pulse Oximetry 07/17/18 15:53 07/17/18 16:00 07/17/18 17:00 Temperature 99.2 F Pulse Rate 76 80 85 Respiratory Rate 16 Blood Pressure 124/60 Pulse Oximetry 98 07/17/18 18:00 07/17/18 19:00 07/17/18 20:00 Temperature Pulse Rate 86 81 80 Respiratory Rate Blood Pressure Pulse Oximetry 07/17/18 20:05 07/17/18 21:00 07/17/18 22:00 Temperature 98.7 F Pulse Rate 101 H 74 82 Respiratory Rate 14 Blood Pressure 139/76 Pulse Oximetry 93 L 07/17/18 23:00 07/18/18 00:00 07/18/18 01:00 Temperature 99.6 F Pulse Rate 88 82 78 Respiratory Rate 16 Blood Pressure 131/66 Pulse Oximetry 96 07/18/18 02:00 07/18/18 03:00 07/18/18 04:00 Temperature 99.1 F Pulse Rate 80 84 82 Respiratory Rate 16 Blood Pressure 112/65 Pulse Oximetry 98 07/18/18 05:00 07/18/18 06:00 07/18/18 07:00 Temperature Pulse Rate 78 95 H 76 Respiratory Rate Blood Pressure Pulse Oximetry 07/18/18 07:45 07/18/18 08:00 07/18/18 09:00 Temperature 98.7 F Pulse Rate 76 72 74 Respiratory Rate 16 Blood Pressure 124/68 Pulse Oximetry 97 07/18/18 10:00 Temperature Pulse Rate 72 Respiratory Rate Blood Pressure Pulse Oximetry Intake & Output 07/17/18 07/18/18 07/18/18 18:59 06:59 18:59 Intake Total 1920 / 1920 845 / 845 1000 / 1000 Output Total 50 / 50 Balance 1870 / 1870 845 / 845 1000 / 1000 Weight 67.5 kg Intake: IV 1000 / 1000 125 / 125 1000 / 1000 NS Inj 1,000 ML @ 50 mls/hr IV. 1000 / 1000 1000 / 1000 CONT .Q20H SIM Rx#:[id number] Cardizem Inj 125 MG In NS Inj 125 / 125 100 ML @ 5 MG/HR 5 mls/hr IV. CONT TITRATE PRN Rx#:[id number] Oral 920 / 920 720 / 720 Output: Urine 50 / 50 Other: # Voids 2 # Incontinent Voids 1 Date of Last Bowel Movement 07/17/18 07/17/18 07/17/18 Narrative: \ GENERAL: Pleasant elderly black male in no acute distress. anicteric neck supple rgular rhythm - paced rhythm - no rales abdomen-soft, nontender extremities no edema moves eddie xtremities spotnaeously Results - Labs CBC & Chem 7: 07/17/18 03:00 07/18/18 05:33 Laboratory Results - last 24 hr 07/18/18 05:33 Sodium 139 Potassium 4.3 Chloride 110 H Carbon Dioxide 22.9 Anion Gap 6 BUN 22 H Creatinine 1.72 H Estimated GFR 46 L Random Glucose 92 Calcium 9.2 Total Creatine Kinase 362 H CK-MB (CK-2) Less than 1.0 CK-MB (CK-2) % 0.3 Assessment and Plan - Assessment (1) Defibrillator discharge Code(s): Z45.02 - Encounter for adjustment and management of automatic implantable cardiac defibrillator Status: Acute (2) Atrial fibrillation with RVR Code(s): I48.91 - Unspecified atrial fibrillation Status: Acute (3) Rhabdomyolysis Code(s): M62.82 - Rhabdomyolysis Status: Acute (4) Renal insufficiency Code(s): N28.9 - Disorder of kidney and ureter, unspecified Status: Acute - Plan 83 years old AICD Firing: s/p Medtronic exchange 07/15/[address] 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 Lee ff - continue on Nitrates, Aldactone - started on Amiodarone 200 mg daily, Toprol 100 mg XL daily, Cardizem 30 mg po to be started today. RODGER sweeney - reviewed meds- not on any OAC-as OP Dr. Lee will review office notes -currently on Lovenox Rhabdomyolysis: CPK 1438- downt o 800s - down to 300s TOAN on underlying chronic Renal Insufficiency with history of Nephrectomy- - creatinine trended down- likely near baseline - ff BMP, CK level - heplock IVF DVT Prophylaxis: SCD/Teds Lovenox 30 mg SQ daily Increase activity
--- NOTE | 2018-07-18 12:31 | P.PNCA ---
Subjective Interval history: No events overnight Cardizem drip off, on Cardizem PO doing well Medications and Allergies Active Medications: Active Medications Acetaminophen (Tylenol) 650 mg PO Q4H PRN PRN Reason: Temp > 100.4 Al Hydroxide/Mg Hydroxide (Milk Of Magnesia Liq) 30 ml PO Q12H PRN PRN Reason: Mild Constipation Amiodarone HCl (Cordarone) 200 mg PO DAILY [facility] Last Admin: 07/18/18 08:49 Dose: 200 mg Bisacodyl (Dulcolax Supp) 10 mg RECTAL DAILY PRN PRN Reason: SEVERE CONSITIPATION Diltiazem HCl (Cardizem) 30 mg PO QID [facility] Last Admin: 07/18/18 08:50 Dose: 30 mg Enoxaparin Sodium (Lovenox Inj) 30 mg SQ DAILY [facility] Last Admin: 07/18/18 08:47 Dose: 30 mg Diltiazem HCl 125 mg/ Sodium (Chloride) 125 mls @ 5 mls/hr IV.CONT TITRATE PRN ; Protocol PRN Reason: Per Protocol Last Titration: 07/18/18 09:55 Dose: 0 mg/hr, 0 mls/hr Isosorbide Mononitrate (Imdur) 60 mg PO DAILY@0700 [facility] Last Admin: 07/18/18 08:50 Dose: 60 mg Lactulose (Lactulose Liq) 30 ml PO DAILY PRN PRN Reason: SEVERE CONSITIPATION Metoprolol Succinate (Toprol Xl) 100 mg PO DAILY [facility] Last Admin: 07/18/18 08:49 Dose: 100 mg Ondansetron HCl (Zofran Inj) 4 mg IV.PUSH Q6H PRN PRN Reason: NAUSEA OR VOMITING Pantoprazole Sodium (Protonix) 40 mg PO DAILY [facility] Last Admin: 07/18/18 08:50 Dose: 40 mg Senna/Docusate Sodium (Rosemary-Colace) 1 tab PO BID [facility] Last Admin: 07/18/18 08:50 Dose: Not Given Sennosides (Senokot) 17.2 mg PO Q12H PRN PRN Reason: Moderate Constipation Sodium Chloride (Ns Flush) 2 ml IV.FLUSH BID [facility] Last Admin: 07/18/18 08:50 Dose: Not Given Sodium Chloride (Ns Flush) 2 ml IV.FLUSH PRN PRN PRN Reason: FLUSH AFTER USING IV ACCESS Spironolactone (Aldactone) 25 mg PO BID [facility] Last Admin: 07/18/18 08:50 Dose: 25 mg Allergies Allergy/AdvReac Type Severity Reaction Status Date / Time No Known Allergies Allergy Verified 07/15/18 05:45 Home Medications Medication Instructions Recorded Confirmed Type amiodarone 200 mg PO DAILY 07/15/18 07/16/18 History hydrochlorothiazide 25 mg PO DAILY 07/15/18 07/16/18 History isosorbide mononitrate 60 mg PO QAM 07/15/18 07/16/18 History levothyroxine 25 mcg PO DAILY 07/15/18 07/16/18 History lovastatin 40 mg PO DAILY 07/15/18 07/16/18 History metoprolol succinate 100 mg PO DAILY 07/15/18 07/16/18 History pantoprazole 40 mg PO DAILY 07/15/18 07/16/18 History spironolactone 25 mg PO BID 07/15/18 07/16/18 History Physical Exam Vital signs: Vital Signs 07/17/18 13:00 07/17/18 14:00 07/17/18 15:00 Temperature Pulse Rate 84 86 81 Respiratory Rate Blood Pressure Pulse Oximetry 07/17/18 15:53 07/17/18 16:00 07/17/18 17:00 Temperature 99.2 F Pulse Rate 76 80 85 Respiratory Rate 16 Blood Pressure 124/60 Pulse Oximetry 98 07/17/18 18:00 07/17/18 19:00 07/17/18 20:00 Temperature Pulse Rate 86 81 80 Respiratory Rate Blood Pressure Pulse Oximetry 07/17/18 20:05 07/17/18 21:00 07/17/18 22:00 Temperature 98.7 F Pulse Rate 101 H 74 82 Respiratory Rate 14 Blood Pressure 139/76 Pulse Oximetry 93 L 07/17/18 23:00 07/18/18 00:00 07/18/18 01:00 Temperature 99.6 F Pulse Rate 88 82 78 Respiratory Rate 16 Blood Pressure 131/66 Pulse Oximetry 96 07/18/18 02:00 07/18/18 03:00 07/18/18 04:00 Temperature 99.1 F Pulse Rate 80 84 82 Respiratory Rate 16 Blood Pressure 112/65 Pulse Oximetry 98 07/18/18 05:00 07/18/18 06:00 07/18/18 07:00 Temperature Pulse Rate 78 95 H 76 Respiratory Rate Blood Pressure Pulse Oximetry 07/18/18 07:45 07/18/18 08:00 07/18/18 09:00 Temperature 98.7 F Pulse Rate 76 72 74 Respiratory Rate 16 Blood Pressure 124/68 Pulse Oximetry 97 07/18/18 10:00 07/18/18 11:36 Temperature 98.1 F Pulse Rate 72 74 Respiratory Rate 16 Blood Pressure 113/58 L Pulse Oximetry 94 L Intake & Output 07/17/18 07/18/18 07/18/18 18:59 06:59 18:59 Intake Total 1920 / 1920 845 / 845 1150 / 1150 Output Total 50 / 50 Balance 1870 / 1870 845 / 845 1150 / 1150 Weight 67.5 kg Intake: IV 1000 / 1000 125 / 125 1150 / 1150 NS Inj 1,000 ML @ 50 mls/hr IV. 1000 / 1000 1150 / 1150 CONT .Q20H SIM Rx#:[id number] Cardizem Inj 125 MG In NS Inj 125 / 125 100 ML @ 5 MG/HR 5 mls/hr IV. CONT TITRATE PRN Rx#:[id number] Oral 920 / 920 720 / 720 Output: Urine 50 / 50 Other: # Voids 2 # Incontinent Voids 1 Date of Last Bowel Movement 07/17/18 07/17/18 07/17/18 Narrative: \ GENERAL: Pleasant elderly male in no acute distress. anicteric neck supple regular rate and rhythm no rales abdomen-soft, nontender extremities no edema moves all extremities spontaneously Results 07/17/18 03:00 07/18/18 05:33 Cardiac Enzymes 07/16/18 07/17/18 07/17/18 Range/Units 20:00 00:25 03:00 AST 57 H 40 H (15-37) U/L CK-MB (CK-2) 1.1 1.1 (0.5-3.6) ng/mL Troponin I 0.04 0.05 0.05 (0.02-0.05) ng/mL 07/18/18 Range/Units 05:33 AST (15-37) U/L CK-MB (CK-2) Less than 1.0 (0.5-3.6) ng/mL Troponin I (0.02-0.05) ng/mL Coagulation 07/16/18 Range/Units 20:00 PT 10.9 (9.8-11.6) sec APTT 28.8 (23.4-31.7) sec CBC 07/16/18 07/17/18 Range/Units 20:00 03:00 WBC 7.1 5.3 (4.0-11.0) th/mm3 RBC 4.50 3.60 L (4.50-5.90) mil/mm3 Hgb 12.7 L 10.3 L D (13.0-17.0) gm/dL Hct 39.4 31.0 L (39.0-51.0) % Plt Count 158 130 L (150-450) th/mm3 Neut # (Auto) 5.6 3.9 (1.8-7.7) th/mm3 Lymph # (Auto) 0.6 L 0.7 L (1.0-4.8) th/mm3 [place] # (Auto) 0.9 0.7 (0.0-0.9) th/mm3 Eos # (Auto) 0.0 0.0 (0.0-0.4) th/mm3 Baso # (Auto) 0.0 0.0 (0.0-0.2) th/mm3 Comprehensive Metabolic Panel 07/16/18 07/17/18 07/18/18 Range/Units 20:00 03:00 05:33 Sodium 133 L 139 139 (136-145) meq/L Potassium 5.0 4.5 4.3 (3.5-5.1) meq/L Chloride 102 106 110 H (98-107) meq/L Carbon Dioxide 23.9 25.3 22.9 (21.0-32.0) meq/L BUN 32 H 29 H 22 H (7-18) mg/dL Creatinine 2.08 H 1.78 H 1.72 H (0.60-1.30) mg/dL Calcium 10.5 H 9.4 D 9.2 (8.5-10.1) mg/dL AST 57 H 40 H (15-37) U/L ALT 14 10 L (12-78) U/L Alkaline Phosphatase 85 65 (45-117) U/L Total Protein 8.1 6.4 D (6.4-8.2) g/dL Albumin 3.3 L 2.5 L D (3.4-5.0) g/dL Intake and Output 07/17/18 07/18/18 07/18/18 22:59 06:59 14:59 Intake Total 1045 / 1045 720 / 720 1150 / 1150 Output Total 50 / 50 Balance 995 / 995 720 / 720 1150 / 1150 Intake: IV 125 / 125 1150 / 1150 NS Inj 1,000 ML @ 50 mls/hr IV. 1150 / 1150 CONT .Q20H SIM Rx#:[id number] Cardizem Inj 125 MG In NS Inj 125 / 125 100 ML @ 5 MG/HR 5 mls/hr IV. CONT TITRATE PRN Rx#:[id number] Oral 920 / 920 720 / 720 Output: Urine 50 / 50 Other: # Voids 2 # Incontinent Voids 1 Date of Last Bowel Movement 07/17/18 07/17/18 07/17/18 Weight 67.5 kg - Imaging and Cardiology Imaging: Impressions Chest X-Ray 07/16/18 19:51 CONCLUSION: Stable atelectasis versus scarring in the right lower lung. Stable elevation right hemidiaphragm. No new or acute pulmonary infiltrates. Assessment and Plan - Assessment (1) Atrial fibrillation with RVR Code(s): I48.91 - Unspecified atrial fibrillation Status: Acute (2) Defibrillator discharge Code(s): Z45.02 - Encounter for adjustment and management of automatic implantable cardiac defibrillator Status: Acute (3) Rhabdomyolysis Code(s): M62.82 - Rhabdomyolysis Status: Acute (4) Renal insufficiency Code(s): N28.9 - Disorder of kidney and ureter, unspecified Status: Acute - Plan 1) AFib with RVR Currently on controlled on Amiodarone, Toprol XL and Cardizem Plan to change Cardizem to CD 120mg daily on discharge Discussed with Dr. Ervin, patient will most likely need AV ryan ablation in the future Concern for taking medications as he should at home Can follow up in the office with him for it if he's going to be discharged 2) AICD firing x6 Due to AFib with RVR, no VT noted 3) Not an anticoagulation candidate at this time due to non-compliance with medications 4) Cardiomyopathy EF 20-25% 5) If stable through the afternoon, then can be discharged home on meds and follow up with Dr. Ervin for AV ryan ablation consideration
[2018-07-19] MEDS: Isosorbide Mononitrate 60 MG ER 24HR Tablet (Imdur) PO SCH (06:22)
[2018-07-19] MEDS: Amiodarone 200 MG Tablet PO SCH (08:25)
[2018-07-19] MEDS: Spironolactone 25 MG Tablet PO SCH (08:27)
[2018-07-19] MEDS: Enoxaparin Inj 30 MG/0.3 ML Syringe SQ SCH (08:27)
[2018-07-19] MEDS: Senna/Docusate Sodium 8.6/50 MG Tablet PO SCH (08:27)
[2018-07-19] MEDS ORDERED: dilTIAZem CD 120 MG Capsule PO SCH (09:00)
--- NOTE | 2018-07-19 12:01 | P.PN ---
Subjective Interval history: paced rhythm up and ambulated with a walker- no chest pains good po Physical Exam Vital signs: Vital Signs 07/18/18 12:00 07/18/18 12:48 07/18/18 13:00 Temperature Pulse Rate 78 82 78 Respiratory Rate Blood Pressure 129/60 Pulse Oximetry 95 07/18/18 14:00 07/18/18 15:00 07/18/18 16:00 Temperature 97.2 F L Pulse Rate 76 77 72 Respiratory Rate 16 Blood Pressure 119/49 L Pulse Oximetry 97 07/18/18 17:00 07/18/18 18:00 07/18/18 18:02 Temperature Pulse Rate 72 80 81 Respiratory Rate 18 Blood Pressure 129/64 Pulse Oximetry 96 07/18/18 19:00 07/18/18 20:00 07/18/18 21:00 Temperature 98.3 F Pulse Rate 82 84 74 Respiratory Rate 20 Blood Pressure 113/52 L Pulse Oximetry 97 07/18/18 22:00 07/18/18 23:00 07/19/18 00:00 Temperature 98.5 F Pulse Rate 73 73 90 Respiratory Rate 16 Blood Pressure 119/60 Pulse Oximetry 98 07/19/18 01:00 07/19/18 02:00 07/19/18 03:00 Temperature Pulse Rate 76 76 76 Respiratory Rate Blood Pressure Pulse Oximetry 07/19/18 04:00 07/19/18 05:00 07/19/18 06:00 Temperature 98.0 F Pulse Rate 71 79 79 Respiratory Rate 16 Blood Pressure 118/58 L Pulse Oximetry 97 07/19/18 07:00 07/19/18 08:00 07/19/18 09:00 Temperature 98.3 F Pulse Rate 78 100 H 98 H Respiratory Rate 20 Blood Pressure 104/60 Pulse Oximetry 97 07/19/18 10:00 Temperature Pulse Rate 82 Respiratory Rate Blood Pressure Pulse Oximetry Intake & Output 07/18/18 07/19/18 07/19/18 18:59 06:59 18:59 Intake Total 1989 240 / 240 Output Total 100 / 100 Balance 1890 / 1890 240 / 240 Weight 67.8 kg Intake: IV 1150 / 1150 NS Inj 1,000 ML @ 50 mls/hr IV. 1150 / 1150 CONT .Q20H [facility] Rx#:[id number] Oral 840 / 840 240 / 240 Output: Urine 100 / 100 Other: # Voids 2 2 Date of Last Bowel Movement 07/18/18 07/18/18 07/18/18 # Bowel Movements 2 Narrative: \ GENERAL: Pleasant elderly male in no acute distress. anicteric neck supple regular rate and rhythm- paced on telemetry, occasional PVCs no rales abdomen-soft, nontender extremities no edema moves all extremities spontaneously gait -steady with a walker Results - Labs CBC & Chem 7: 07/17/18 03:00 07/18/18 05:33 Assessment and Plan - Assessment (1) Defibrillator discharge Code(s): Z45.02 - Encounter for adjustment and management of automatic implantable cardiac defibrillator Status: Acute (2) Atrial fibrillation with RVR Code(s): I48.91 - Unspecified atrial fibrillation Status: Acute (3) Rhabdomyolysis Code(s): M62.82 - Rhabdomyolysis Status: Acute (4) Renal insufficiency Code(s): N28.9 - Disorder of kidney and ureter, unspecified Status: Acute - Plan 83 years old AICD Firing: s/p Medtronic exchange 07/15/[address] 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 Lee ff - continue on Nitrates, Aldactone, restart HCTZ 12.5 mg po daily - started on Amiodarone 200 mg daily, Toprol 100 mg XL daily, Cardizem CD 120 mg daily - reviewed meds- not on any OAC-as OP d/w Dr. Lee 07/18 -due to non compliance - currently on Lovenox - ASA on DC - Rhabdomyolysis: CPK 1438- downt o 800s - down to 300s TOAN on underlying chronic Renal Insufficiency with history of Nephrectomy- - creatinine trended down- likely near baseline - ff BMP as OP - heplock IVF DVT Prophylaxis: SCD/Teds Lovenox 30 mg SQ daily Increase activity DC planning
--- NOTE | 2018-07-19 12:16 | P.DCO ---
- Diagnosis (1) Defibrillator discharge Status: Acute - Physical Therapy Order: Evaluate and treat - Home Health Nursing Order: Medical education, Signs/symptoms of disease process, CHF education, Medication education-adverse effect, Nursing assessment with vital signs - Case Management Consult Case Management Consult-Home Health: Yes - Certification I have seen patient Zoila Ambrose on 07/19/18. My clinical findings support the need for the requested home health care services because: Patient has SOB, Deconditioned with increased weakness I certify that my clinical findings support that this patient is homebound because: Poor cardiac reserve
--- NOTE | 2018-07-19 12:41 | P.DS ---
Date of admission: 07/16/18 21:56 Primary care physician: UNKNOWN Anticipated date of discharge: 07/19/18 Brief History from admission: This is an 83-year-old male with a PMH of HTN, CAD, h/o Colon CA, h/o V-tach s/ p AICD and h/o Nephrectomy who was brought to the ER by family for c/o SOB and AICD firing. Pt underwent AICD replacement for end of life battery by Dr. Ervin yesterday, on 07/15/18, per family pt had been doing well until today when he developed acute onset of SOB. Niece notes pt w/ multiple episodes of AICD firing. On arrival, pt noted to be in A-fib w/ RVR, HR 130's. Medtronic device interrogated in ER, pt shocked 6 times after going into ventricular rate of approx 182-273 w/ episodes of A-fib. Dr. Lee consulted by ER physician , recommendation for Cardizem gtt. Pt currently without complaints. BP 129/75 , HR 99, O2 sat 97% on RA, Afebrile. CBC essentially unremarkable. INR 1.1 per creatinine 2.08, previously 2.0 on 07/01/2018. CPK 1438. Troponin 0.04. CXR with stable findings, no acute infiltrates. Patient update on day of discharge: paced rhythm awake and alert ambualted well with walker DS: Diagnosis - Discharge Diagnosis (1) Defibrillator discharge Status: Acute (2) Atrial fibrillation with RVR Status: Acute (3) Rhabdomyolysis Status: Acute (4) Renal insufficiency Status: Acute DS: Medications - Discharge Medications Prescriptions: aspirin 81 mg PO DAILY 90 Days #90 tab diltiazem HCl 120 mg PO DAILY #30 cap DS: Summary Hospital Course: 83 years old AICD Firing: s/p Medtronic exchange 07/15/[address] 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 Lee ff - continue on Nitrates, Aldactone, restart HCTZ 12.5 mg po daily - started on Amiodarone 200 mg daily, Toprol 100 mg XL daily, Cardizem CD 120 mg daily - reviewed meds- not on any OAC-as OP d/w Dr. Lee 07/18 -due to non compliance - currently on Lovenox - ASA on Discharge - Rhabdomyolysis: CPK 1438- downt o 800s - down to 300s TOAN on underlying chronic Renal Insufficiency with history of Nephrectomy- - creatinine trended down- likely near baseline - ff BMP as OP - heplock IVF DVT Prophylaxis: SCD/Teds Lovenox 30 mg SQ daily Increase activity DC home today - Time Spent with Patient Total time spent providing and/or coordinating discharge services: Greater than 30 minutes - Quality: VTE Deep Vein Thrombosis/Pulmonary Embolism Present on Admission: No Exam Vital signs: Vital Signs 07/18/18 12:48 07/18/18 13:00 07/18/18 14:00 Temperature Pulse Rate 82 78 76 Respiratory Rate Blood Pressure 129/60 Pulse Oximetry 95 07/18/18 15:00 07/18/18 16:00 07/18/18 17:00 Temperature 97.2 F L Pulse Rate 77 72 72 Respiratory Rate 16 Blood Pressure 119/49 L Pulse Oximetry 97 07/18/18 18:00 07/18/18 18:02 07/18/18 19:00 Temperature Pulse Rate 80 81 82 Respiratory Rate 18 Blood Pressure 129/64 Pulse Oximetry 96 07/18/18 20:00 07/18/18 21:00 07/18/18 22:00 Temperature 98.3 F Pulse Rate 84 74 73 Respiratory Rate 20 Blood Pressure 113/52 L Pulse Oximetry 97 07/18/18 23:00 07/19/18 00:00 07/19/18 01:00 Temperature 98.5 F Pulse Rate 73 90 76 Respiratory Rate 16 Blood Pressure 119/60 Pulse Oximetry 98 07/19/18 02:00 07/19/18 03:00 07/19/18 04:00 Temperature 98.0 F Pulse Rate 76 76 71 Respiratory Rate 16 Blood Pressure 118/58 L Pulse Oximetry 97 07/19/18 05:00 07/19/18 06:00 07/19/18 07:00 Temperature Pulse Rate 79 79 78 Respiratory Rate Blood Pressure Pulse Oximetry 07/19/18 08:00 07/19/18 09:00 07/19/18 10:00 Temperature 98.3 F Pulse Rate 100 H 98 H 82 Respiratory Rate 20 Blood Pressure 104/60 Pulse Oximetry 97 07/19/18 12:00 Temperature 97.8 F Pulse Rate 82 Respiratory Rate 18 Blood Pressure 100/66 Pulse Oximetry 97 Intake & Output 07/18/18 07/19/18 07/19/18 18:59 06:59 18:59 Intake Total 1989 240 / 240 Output Total 100 / 100 Balance 1890 / 1890 240 / 240 Weight 67.8 kg Intake: IV 1150 / 1150 NS Inj 1,000 ML @ 50 mls/hr IV. 1150 / 1150 CONT .Q20H [facility] Rx#:[id number] Oral 840 / 840 240 / 240 Output: Urine 100 / 100 Other: # Voids 2 2 Date of Last Bowel Movement 07/18/18 07/18/18 07/18/18 # Bowel Movements 2 Narrative: \ GENERAL: Pleasant elderly male in no acute distress. anicteric neck supple regular rate and rhythm- paced on telemetry, occasional PVCs no rales abdomen-soft, nontender extremities no edema moves all extremities spontaneously gait -steady with a walker Results Procedures completed during hospitalization: Medtr[employer] exchange - Impressions ITS Impressions Chest X-Ray 07/16/18 19:51 CONCLUSION: Stable atelectasis versus scarring in the right lower lung. Stable elevation right hemidiaphragm. No new or acute pulmonary infiltrates. Discharge Plan - Discharge Disposition Patient Disposition: W/Home Health Service - Discharge Condition Condition: Stable - Discharge Order Discharge Orders: Discharge Order (Routine); Ordered 07/19/18 Ordered By: Noelle Angela - Discharge Details Anticipated Discharge Date: 07/19/18 - Physicians Team Primary Care Provider: UNKNOWN, Attending Provider: Noelle Angela Other Providers: Nomi Lee, DO ; [employer]
[2018-07-20] MEDS ORDERED: hydroCHLOROthiazide 25 MG Tablet PO SCH (09:00)
== END 2018-07-19 13:50 | disposition home health service (06) ==
LOC: NEPE 18:43 → NEDA 21:56 → HCIS 07-17 00:45
PROVIDERS: ADMIT Internal Medicine; ATTEND Internal Medicine